=== PATIENT | male | born 1975 | race Hispanic/Latino ===

== ENCOUNTER 2018-07-16 10:56 | Emergency (ER) | payer SELFPAY | END 2018-07-16 13:11 | disposition home or self-care (01) | LOC: EDH 10:56 | DX: J10.1 Influenza due to other identified influenza virus with other respiratory manifestations (principal); R50.81 Fever presenting with conditions classified elsewhere; Z88.2 Allergy status to sulfonamides; Z72.0 Tobacco use | CPT/HCPCS: 71046; 87804 ==